=== PATIENT | male | born 1950 ===

== ENCOUNTER → 2017-12-02 | Outpatient (CLI) | payer MEDICARE, MEDICAID ==
[~2017-12-02] VITALS: Ht 185.4 cm; Wt 113.0 kg
[~2017-12-02] MED LIST: AMIO200T44 PO; APIX5TAB PO; ASPI81 PO; ATOR40TA28 PO; CARV6 PO; FAMO20 PO; FEXO-58 PO; LISI-662 PO; TICA90TA PO
[2017-12-02 09:55] VITALS: BP 183/92
== END | disposition home or self-care (01) ==
LOC: SRCNTR 09:39
PROVIDERS: ATTEND Internal Medicine Cardiovascular Disease
DX: I11.9 Hypertensive heart disease without heart failure (principal); I48.0 Paroxysmal atrial fibrillation; E66.9 Obesity, unspecified
CPT/HCPCS: 90471; G0463